=== PATIENT | female | born 1990 | race Caucasian/White ===

== ENCOUNTER 2019-05-18 12:00 | Inpatient (IN) ==
[2019-05-18 12:38] LABS: BILIRUBIN URINE NEGATIVE (NEGATIVE); BLOOD URINE 4+ (NEGATIVE); CLARITY VERY CLOUDY (CLEAR); COLOR RED; GLUCOSE URINE NEGATIVE (NEGATIVE); KETONE URINE TRACE mg/dL (NEGATIVE); LEUKOCYTES URINE 2+ (NEGATIVE); NITRITE URINE NEGATIVE (NEGATIVE); PROTEIN URINE 2+(100 mg/dL) mg/dL (NEGATIVE); SP GRAVITY URINE 1.015; URINE SOURCE VOIDED; UROBILINOGEN URINE NORMAL
[2019-05-18] MEDS ORDERED: TYLENOL PO PRN (12:49)
[2019-05-18] MEDS ORDERED: REGLAN PO ONE (12:49)
[2019-05-18] MEDS ORDERED: ZOFRAN IV PRN (12:49)
[2019-05-18] MEDS ORDERED: PEPCID IV PRN (12:49)
[2019-05-18] MEDS ORDERED: PEPCID PO ONE (12:49)
[2019-05-18] MEDS ORDERED: LR 500 ML IV ONE (12:49)
[2019-05-18] MEDS ORDERED: KEFZOL 1 GM/D5W 1 GM/50 ML IVPB IV PRN (12:49)
[2019-05-18] MEDS ORDERED: PEPCID PO PRN (12:49)
[2019-05-18] MEDS ORDERED: STADOL IV PRN (12:49)
[2019-05-18] MEDS ORDERED: MINERAL OIL TOP ONE (12:51)
[2019-05-18] MEDS ORDERED: XYLOCAINE-MPF 1% INJ ONE (12:52)
[2019-05-18] MEDS ORDERED: LR 1,000 ML IV SCH (13:00)
[2019-05-18] MEDS ORDERED: SODIUM CHLORIDE 0.9% INJ SCH (13:00)
[2019-05-18] MEDS ORDERED: PITOCIN 30 UNITS/NS 30 UNIT/500 ML IV.SOLN IV SCH ×2 (13:00→16:00)
[2019-05-18 13:37] LABS: BASO# 0.03 X1000 (0.0-0.2); BASO% 0.2 % (0.0-0.8); EOS# 0.17 X1000 (0.0-0.7); EOS% 0.9 % (0.0-10.0); HEMATOCRIT 32.1 % (37.0-47.0); HEMOGLOBIN 10.2 g/dL (12.0-16.0); IMM GRAN# 0.11 X1000 (0.0-0.04); IMM GRAN% 0.6 % (0.0-0.5); LYMPH# 2.42 X1000 (1.2-3.4); LYMPH% 12.4 % (20.5-51.1); MCH 27.3 PG (27-31); MCHC 31.8 g/dL (33-37); MCV 86.1 FL (81-99); MONO# 1.57 X1000 (0.11-0.59); MPV 10.4 FL (7.4-10.4); NEUT# 15.25 X1000 (1.4-6.5); NEUT% 77.9 % (42.2-75.2); PLT 345 X1000 (130-400); RBC 3.73 XMIL (4.2-5.4); RDW 14.3 % (11.5-14.5); WBC 19.55 X1000 (4.8-10.8)
[2019-05-18] MEDS ORDERED: MOTRIN PO PRN (13:52)
[2019-05-18 14:11] LABS: UR AMPHETAMINES QUAL NONE DETECTED (NONE DETECT); UR BARBITUATES QUAL NONE DETECTED (NONE DETECT); UR BENZODIAZEPIN QUAL NONE DETECTED (NONE DETECT); UR CANNABINOIDS QUAL NONE DETECTED (NONE DETECT); UR COCAINE QUAL NONE DETECTED (NONE DETECT); UR METHADONE QUAL NONE DETECTED (NONE DETECT); UR METHAMPHETAMINE QUAL NONE DETECTED (NONE DETECT); UR OPIATES QUAL NONE DETECTED (NONE DETECT); UR OXYCODONE QUAL NONE DETECTED (NONE DETECT); UR PCP QUAL NONE DETECTED (NONE DETECT); UR PROPOXYPHENE QUAL NONE DETECTED (NONE DETECT); UR TCA QUAL NONE DETECTED (NONE DETECT)
[2019-05-18] MEDS ORDERED: PERCOCET-5 PO PRN (15:21)
--- NOTE | 2019-05-18 15:42 | H&P REVIEW ---
H&P Update Document any changes: H&P was dictated.
[2019-05-18] MEDS ORDERED: BOOSTRIX VACCINE IM ONE (15:50)
[2019-05-18] MEDS ORDERED: ATARAX PO PRN (15:50)
[2019-05-18] MEDS ORDERED: MINERAL OIL PO PRN (15:50)
[2019-05-18] MEDS ORDERED: CYTOTEC PO PRN (15:50)
[2019-05-18] MEDS ORDERED: BENADRYL PO PRN (15:50)
[2019-05-18] MEDS ORDERED: PERI MEDS (DERMOPLAST/NUPERCAINAL/TUCKS) MISC PRN (15:50)
[2019-05-18] MEDS ORDERED: XYLOCAINE-MPF 1% INJ PRN (15:50)
[2019-05-18] MEDS ORDERED: BENADRYL IV PRN (15:50)
[2019-05-18] MEDS ORDERED: AMBIEN PO PRN (15:50)
[2019-05-18] MEDS ORDERED: PITOCIN IM PRN (15:50)
[2019-05-18] MEDS ORDERED: M-M-R II VACCINE SUBQ ONE (15:50)
[2019-05-18] MEDS ORDERED: HYDROXYZINE IM PRN (15:50)
[2019-05-18] MEDS ORDERED: PITOCIN 20 UNITS/NS 20 UNITS/1,000 ML IV.SOLN IV SCH (16:00)
--- NOTE | 2019-05-18 17:02 | OPERATIVE NOTE ---
PROCEDURE DATE : 05/18/2019 DELIVERY REPORT: This is a 29-year-old white female, G3, P3, who delivered at 38 weeks and 5 days a male infant in cephalic position with scores of 8 and 9 and weight of 6 pounds 14 ounces. Unmedicated. Placenta delivered without complication. Meconium. GBS unknown. No lacerations. Three vessel cord. Cord gases sent. Blood loss was 500 mL. Pitocin given after delivery.
[2019-05-18] MEDS ORDERED: COLACE PO PRN (19:28)
[2019-05-18] MEDS: PERCOCET-5 PO PRN (20:38)
[2019-05-18] MEDS ORDERED: PERICOLACE PO SCH (21:00)
--- NOTE | 2019-05-18 21:14 | HISTORY AND PHYSICAL ---
HISTORY: This is a 29-year-old white female, G3, P2 at 38 and 5 weeks with a due date of 05/27/2019, who came in to labor and delivery in active labor, complaining of regular contractions and spotting and no rupture of membrane. Patient's GBS is unknown and has been seen 1 time in clinic; otherwise, was seen in the [facility]. The patient complains of severe abdominal pain with contractions since 2 a.m. She was seen in clinic, it was 4 cm. The patient arrived and was completely dilated. PAST MEDICAL HISTORY: None. PAST SURGICAL HISTORY: None. PAST OB HISTORY: Two vaginal deliveries. Uncomplicated pregnancies. PAST [employer] HISTORY: No STDs. PAST SOCIAL HISTORY: Past smoker. FAMILY HISTORY: Noncontributory. ALLERGIES: Hydrocodone. BLOOD TYPE: A-positive, rubella immune. PHYSICAL EXAMINATION: VITAL SIGNS: Stable. She is afebrile. GENERAL: The patient in no apparent distress. Alert and oriented x3. Appears to be in active labor. HEENT: Normocephalic, atraumatic. CHEST: Clear to auscultation bilaterally. HEART: Regular rate and rhythm. ABDOMEN: Is soft, gravid. EXTREMITIES: No cyanosis or edema. ASSESSMENT/PLAN: Intrauterine at 38 weeks and 5 days in active labor. GBS unknown. Expectant management.
[2019-05-18] MEDS: MOTRIN PO PRN (22:52)
[2019-05-19] MEDS ORDERED: NEURONTIN PO ONE (03:14)
--- NOTE | 2019-05-19 07:14 | OB/GYN PROGRESS NOTE ---
Progress Note OB - . OB Progress Note: Vital Signs - 24 hr 05/18/19 12:01 05/18/19 12:30 05/18/19 15:00 Temperature 98.3 F 97.2 F L Pulse Rate 99 H 94 H 81 Respiratory Rate 18 20 20 Blood Pressure 122/74 122/73 98/74 O2 Sat by Pulse Oximetry 98 100 100 05/18/19 20:13 05/18/19 23:57 05/19/19 03:46 Temperature 96.8 F L 96.7 F L 96.5 F L Pulse Rate 82 69 66 Respiratory Rate 18 18 18 Blood Pressure 110/70 109/65 100/70 O2 Sat by Pulse Oximetry 99 99 99 Laboratory Results - last 24 hr 05/18/19 05/18/19 05/18/19 12:23 12:23 12:50 WBC RBC Hgb Hct MCV MCH MCHC RDW Std Deviation Plt Count MPV Immature Gran % (Auto) Neut % (Auto) Lymph % (Auto) [place] % (Auto) Eos % (Auto) Baso % (Auto) Immature Gran # (Auto) Neut # (Auto) Lymph # (Auto) [place] # (Auto) Eos # (Auto) Baso # (Auto) Urine Source VOIDED Urine Color RED Urine Clarity VERY CLOUDY A Urine pH 7.0 Ur Specific [place] 1.015 Urine Protein 2+(100 mg/dL) A Urine Ketones TRACE Urine Blood 4+ Urine Nitrite NEGATIVE Urine Bilirubin NEGATIVE Urine Urobilinogen NORMAL Urine WBC 2+ A Urine Glucose NEGATIVE Urine Opiates Screen NONE DETECTED Ur Oxycodone Screen NONE DETECTED Urine Methadone Screen NONE DETECTED U Propoxyphene Qual NONE DETECTED Ur Barbituates Screen NONE DETECTED Ur Tricyclics Screen NONE DETECTED Ur Phencyclidine Scrn NONE DETECTED Ur Amphetamines Screen NONE DETECTED U Methamphetamines Scrn NONE DETECTED U Benzodiazepines Scrn NONE DETECTED Urine Cocaine Screen NONE DETECTED U Cannabinoids Screen NONE DETECTED RPR NON-REACTIVE 05/18/19 12:50 WBC 19.55 H RBC 3.73 L Hgb 10.2 L Hct 32.1 L MCV 86.1 MCH 27.3 MCHC 31.8 L RDW Std Deviation 14.3 Plt Count 345 MPV 10.4 Immature Gran % (Auto) 0.6 H Neut % (Auto) 77.9 H Lymph % (Auto) 12.4 L [place] % (Auto) 8.0 Eos % (Auto) 0.9 Baso % (Auto) 0.2 Immature Gran # (Auto) 0.11 H Neut # (Auto) 15.25 H Lymph # (Auto) 2.42 [place] # (Auto) 1.57 H Eos # (Auto) 0.17 Baso # (Auto) 0.03 Urine Source Urine Color Urine Clarity Urine pH Ur Specific [place] Urine Protein Urine Ketones Urine Blood Urine Nitrite Urine Bilirubin Urine Urobilinogen Urine WBC Urine Glucose Urine Opiates Screen Ur Oxycodone Screen Urine Methadone Screen U Propoxyphene Qual Ur Barbituates Screen Ur Tricyclics Screen Ur Phencyclidine Scrn Ur Amphetamines Screen U Methamphetamines Scrn U Benzodiazepines Scrn Urine Cocaine Screen U Cannabinoids Screen RPR No complaints, denies PIH/Orthostatic symptoms. A&O NAD CTAB RRR S/ND/fundus firm Normal lochia No C/C/E PPD 1 s/p doing well - ambulate - post op care - anticipate D/C home Thursday.
[2019-05-19] MEDS: MOTRIN PO PRN ×3 (07:34→23:45)
[2019-05-19] MEDS: PRECARE PO SCH (08:59)
[2019-05-19] MEDS: PERCOCET-5 PO PRN ×2 (09:00→21:22)
[2019-05-19 21:22] LABS: BASO# 0.04 X1000 (0.0-0.2); BASO% 0.3 % (0.0-0.8); EOS# 0.19 X1000 (0.0-0.7); EOS% 1.2 % (0.0-10.0); HEMATOCRIT 29.6 % (37.0-47.0); HEMOGLOBIN 9.2 g/dL (12.0-16.0); IMM GRAN# 0.12 X1000 (0.0-0.04); IMM GRAN% 0.8 % (0.0-0.5); LYMPH# 3.83 X1000 (1.2-3.4); LYMPH% 24.2 % (20.5-51.1); MCH 27.3 PG (27-31); MCHC 31.1 g/dL (33-37); MCV 87.8 FL (81-99); MONO# 1.12 X1000 (0.11-0.59); MONO% 7.1 % (1.7-9.3); MPV 10.1 FL (7.4-10.4); NEUT# 10.52 X1000 (1.4-6.5); NEUT% 66.4 % (42.2-75.2); PLT 344 X1000 (130-400); RBC 3.37 XMIL (4.2-5.4); RDW 14.2 % (11.5-14.5); WBC 15.82 X1000 (4.8-10.8)
[2019-05-20 06:06] VITALS: BP 100/55
--- NOTE | 2019-05-20 06:17 | OB/GYN PROGRESS NOTE ---
Progress Note OB - . OB Progress Note: Vital Signs - 24 hr 05/19/19 11:28 05/19/19 15:29 05/19/19 21:25 Temperature 96.4 F L 96.8 F L 96.9 F L Pulse Rate 71 92 H 77 Respiratory Rate 18 18 18 Blood Pressure 109/67 114/69 102/55 O2 Sat by Pulse Oximetry 99 100 05/19/19 22:00 05/20/19 05:50 Temperature 97.0 F L Pulse Rate 86 75 Respiratory Rate 18 18 Blood Pressure 131/78 100/55 O2 Sat by Pulse Oximetry Laboratory Results - last 24 hr 05/19/19 20:30 WBC 15.82 H RBC 3.37 L Hgb 9.2 L Hct 29.6 L MCV 87.8 MCH 27.3 MCHC 31.1 L RDW Std Deviation 14.2 Plt Count 344 MPV 10.1 Immature Gran % (Auto) 0.8 H Neut % (Auto) 66.4 Lymph % (Auto) 24.2 [place] % (Auto) 7.1 Eos % (Auto) 1.2 Baso % (Auto) 0.3 Immature Gran # (Auto) 0.12 H Neut # (Auto) 10.52 H Lymph # (Auto) 3.83 H [place] # (Auto) 1.12 H Eos # (Auto) 0.19 Baso # (Auto) 0.04 HPI: Pt seen and examined. Currently w/o complaints. Ambulating and urinating w/o difficulty. Pain well controlled on PO pain med. Tolerating regular diet. +bottle feeding and decreased lochia. VS: please see above. GEN: NAD CV: RRR RESP: CTA b/l ABD: soft, NTTP, FF below umbilicus EXT: neg CT LABS: please see above ASSESSMENT: 29yo PPD32 s/p PLAN: -Con't PO pain meds -OOB to ambulation -con't reg diet -d/c home today
[2019-05-20] MEDS: MOTRIN PO PRN (07:31)
[2019-05-20] MEDS ORDERED: VITAMIN C PO SCH (09:00)
[2019-05-20] MEDS ORDERED: FERROUS SULFATE PO SCH (09:00)
[2019-05-20] MEDS: PERCOCET-5 PO PRN (09:40)
[2019-05-20] MEDS: PRECARE PO SCH (09:40)
== END 2019-05-20 15:40 | disposition home or self-care (01) | DRG 807 ==
LOC: EDSTATUS 12:00 → P.NBC 12:00 → P.ED 12:00 → EDSTATUS 12:10 → P.DIRADM 12:11 → P.LD 12:11 → UNDODISIN 13:14 → EDSTATUS 14:13 → P.LD 14:18
PROVIDERS: ADMIT Obstetrics & Gynecology; ATTEND Obstetrics & Gynecology